=== PATIENT | male | born 1990 | race Two or more races ===

== ENCOUNTER 2016-09-16 23:48 | Emergency (ER) | payer OTHER ==
[~2016-09-16] VITALS: Ht 177.8 cm; Wt 68.0 kg
[2016-09-17 00:12] VITALS: BP 154/78
[2016-09-17] MEDS ORDERED: LORAZEPAM 1 MG TABLET ONE (00:22)
[2016-09-17] MEDS ORDERED: LORAZEPAM 1 MG TABLET PO ONE (00:30)
== END 2016-09-17 00:58 | disposition home or self-care (01) ==
LOC: ER 23:54
DX: F41.9 Anxiety disorder, unspecified (principal)
CPT/HCPCS: 93005; 99283; A4606; Z7610